=== PATIENT | female | born 1970 | race Caucasian/White ===

== ENCOUNTER 2020-08-01 03:47 | Emergency (ER) | payer MEDICAID ==
[~2020-08-01] VITALS: Ht 157.5 cm; Wt 110.8 kg
[2020-08-01 03:49] VITALS: BP 134/86
[2020-08-01] MEDS ORDERED: IBUPROFEN 600 MG TABLET ONE (03:55)
[2020-08-01] MEDS ORDERED: IBUPROFEN 600 MG TABLET PO ONE (04:00)
== END 2020-08-01 06:47 | disposition home or self-care (01) ==
LOC: ED 05:35
DX: G89.11 Acute pain due to trauma (principal); M25.562 Pain in left knee; W18.30XA Fall on same level, unspecified, initial encounter; Y93.89 Activity, other specified; Y92.89 Other specified places as the place of occurrence of the external cause; Y99.8 Other external cause status
CPT/HCPCS: 99284

== ENCOUNTER 2020-08-07 22:42 | Emergency (ER) | payer MEDICAID ==
[~2020-08-07] VITALS: Ht 162.6 cm; Wt 110.0 kg
--- NOTE | 2020-08-07 22:42 | NUR ---
INITIAL PT CONTACT. PT JACINTA C/O LEFT KNEE PAIN X6 MONTHS. WORSENING OVER LAST 8 WEEKS, SEEN 1 WK AGO DX WITH DVT. "I NEED A RX FOR HYDROCODONE. THAT'S ALL I WANT." PT GIVEN 600MG IBUPROFEN AND 1000MG TYLENOL WITH EMS. PT AMBULATORY WITH STEADY GAIT FROM AMBULANCE TO ED ROOM 16. PT SITTING UPRIGHT ON GURNEY, NADN, VSS. PT PROVIDED ICE PACK PER REQUEST. NO ADDITIONAL NEEDS AT THIS TIME. CALL LIGHT AND PERSONAL BELONGINGS WITHIN REACH. AWAITING ERP
[2020-08-07 22:44] VITALS: BP 168/92
[2020-08-07] MEDS ORDERED: NAPROXEN 500 MG TABLET PO ONE (23:00)
[2020-08-07] MEDS ORDERED: NAPROXEN 500 MG TABLET ONE (23:07)
--- NOTE | 2020-08-07 23:47 | NUR ---
MACHINE II CUTTER AT BEDSIDE FOR KNEE IMMOBILAER APPLICATION. PT TOLERATED WELL
--- NOTE | 2020-08-08 | NUR ---
Patient given discharge instructions and they have confirmed that they understand the instructions. Patient ambulatory with steady gait with use of cane provided
== END 2020-08-08 00:02 | disposition home or self-care (01) ==
LOC: ED 23:11
DX: M13.162 Monoarthritis, not elsewhere classified, left knee (principal); E66.01 Morbid (severe) obesity due to excess calories; Z68.41 Body mass index [BMI] 40.0-44.9, adult
CPT/HCPCS: 29505; 36415; 80299; 99283

== ENCOUNTER 2020-08-12 12:50 | Emergency (ER) | payer MEDICAID ==
[~2020-08-12] VITALS: Ht 162.6 cm; Wt 114.0 kg
--- NOTE | 2020-08-12 16:01 | NUR ---
TO RM 21 FROM LOBBY VIA W/C. AFTER PT GOT GOWN ON SHE AMBULATED TO BATHROOM WITHOUT ASSISTANCE, STEADY GAIT
--- NOTE | 2020-08-12 16:20 | NUR ---
PT ADDITIONALLY STATES SHE USED METH 5 DAYS AGO AND SHE IS CONCERNED IT HAD FENTANYL IN IT AND SHE HAS BEEN FEELING SHAKY SINCE THEN. PT REQUESTING SOMETHING TO TAKE THE EDGE OFF
--- NOTE | 2020-08-12 16:20 | NUR ---
PT STATES THAT SHE HAS BEEN HAVING INCREASED LEFT KNEE PAIN FOR 5 DAYS. SHE IS TAKING XARALTO FOR BLOOD CLOT DX IN THAT LEG. PT HAS KNEE IMMOBILIZER WITH HER THAT WAS GIVEN TO HER BY THIS ER. PT STATES IT SLIPS DOWN AND THAT IT FEELS LIKE IT DOESN'T FIT. PT STATES SHE HAS BEEN GETTING INVEGA INJECTIONS FOR 2 YEARS AND IS SPECULATING HER KNEE PAIN IS A SIDE EFFECT. PT STATES SHE WOULD LIKE TO GET AN INVEGA INJECTION TODAY BECAUSE SHE WAS DUE TO HAVE ONE AUGUST 08.
[2020-08-12] MEDS ORDERED: PALIPERIDONE PALMITATE 117 MG/0.75 ML SYR IM ONE ×2 (17:07→18:30)
--- NOTE | 2020-08-12 17:15 | NUR ---
OFF FLOOR TO XRAY
[2020-08-12] MEDS ORDERED: LORazepam 1MG TABLET PO ONE (17:30)
[2020-08-12] MEDS ORDERED: LORazepam 1MG TABLET ONE (17:37)
[2020-08-12 17:44] VITALS: BP 147/81
--- NOTE | 2020-08-12 18:45 | NUR ---
MD AWARE THAT PER PHARMACY INVEGA ONLY CARRED 156 MG. AWAITING NEW ORDER.
[2020-08-12] MEDS ORDERED: PALIPERIDONE PALMITATE 156 MG/ML IM ONE (19:05)
--- NOTE | 2020-08-12 19:06 | NUR ---
RESTING ON SIDE, NO DISTRESS.
--- NOTE | 2020-08-12 19:31 | NUR ---
medicated as noted on MAR with invega. UOB to w/c and to discharge window.
[2020-08-15] MEDS ORDERED: BIPOLAR MED (04:02)
[2020-08-15] MEDS ORDERED: BP MED (04:02)
[2020-08-15] MEDS ORDERED: ANTICOAGULANT (04:04)
== END 2020-08-12 19:34 | disposition home or self-care (01) ==
LOC: ED 19:28
DX: S89.92XA Unspecified injury of left lower leg, initial encounter (principal); F41.1 Generalized anxiety disorder; F31.9 Bipolar disorder, unspecified; F15.10 Other stimulant abuse, uncomplicated; M19.90 Unspecified osteoarthritis, unspecified site; Z86.718 Personal history of other venous thrombosis and embolism; X58.XXXA Exposure to other specified factors, initial encounter; Y93.89 Activity, other specified; Y92.89 Other specified places as the place of occurrence of the external cause; Y99.8 Other external cause status
CPT/HCPCS: 73564; 96372; 99283; J2426

== ENCOUNTER 2020-08-15 11:27 | Emergency (ER) | payer SELFPAY ==
[~2020-08-15] VITALS: Ht 162.6 cm; Wt 113.2 kg
[~2020-08-15 11:27] MED LIST: ANTICOAGULANT; BIPOLAR MED; BP MED
[2020-08-15 11:41] VITALS: BP 171/85
--- NOTE | 2020-08-15 12:15 | NUR ---
PT NOT IN ROOM. GAUZE DRESSING AND XEROFORM PAD ON RMYRON, TERRI ON THE FLOOR.
--- NOTE | 2020-08-15 12:19 | NUR ---
KHALIF HAINES TO ROOM FOR EXAM. PT STILL NOT IN ROOM; WHEREABOUTS UNKNOWN
== END 2020-08-15 12:24 | disposition left against medical advice (07) ==
LOC: ED 12:20
DX: M85.822 Other specified disorders of bone density and structure, left upper arm (principal); Z53.21 Procedure and treatment not carried out due to patient leaving prior to being seen by health care provider

== ENCOUNTER 2020-08-16 05:02 | Emergency (ER) | payer MEDICAID ==
[~2020-08-16] VITALS: Ht 162.6 cm; Wt 105.9 kg
[2020-08-16] MEDS ORDERED: ACETAMINOPHEN 500 MG TABLET PO ONE (05:30)
[2020-08-16] MEDS ORDERED: PIPERACILLIN/TAZO 3.375 GM in DEXTROSE 5% 50 ML IVPB ONE (05:30)
[2020-08-16 05:47] LABS: MEAN CORPUSCULAR HEMOGLOBIN 29.8 pg (27.0-34.8); MEAN CORPUSCULAR HGB CONC 34.6 g/dL (32.4-35.8); MEAN PLATELET VOLUME 7.7 fL (7.4-10.4); PLATELET COUNT 295 x10^3/uL (130-400); RED BLOOD COUNT 4.31 x10^6/uL (3.82-5.3); RED CELL DISTRIBUTION WIDTH 14.4 % (9.6-15.2)
[2020-08-16 05:55] LABS: ALANINE AMINOTRANSFERASE 24 U/L (12-78); ANION GAP 6 mmol/L (5-15); CALCIUM 8.5 mg/dL (8.5-10.1); CHLORIDE 103 mmol/L (98-107)
[2020-08-16 05:57] LABS: ALKALINE PHOSPHATASE 93 U/L (45-117); BILIRUBIN,TOTAL 0.4 mg/dL (0.2-1.0); CREATININE 0.58 mg/dL (0.55-1.02); TOTAL PROTEIN 7.6 g/dL (6.4-8.2)
[2020-08-16 06:12] LABS: BAND#(MANUAL) 0.34 x10^3/uL; BANDS%(MANUAL) 2 % (0-7); LYMPHS% (MANUAL) 7 % (22-44); MONOS#(MANUAL) 1.38 x10^3/uL (0.3-2.7); MONOS% (MANUAL) 8 % (2-9); SEG#(MANUAL) 14.28 x10^3/uL (1.8-6.8); SEGS% (MANUAL) 83 % (42-75)
[2020-08-16 06:13] LABS: <PLATELET ESTIMATE> ADEQUATE; <PLT MORPHOLOGY> NORMAL PLT MORPH; <RBC MORPHOLOGY> NORMAL
--- NOTE | 2020-08-16 07:01 | NUR ---
report to betty, rns
--- NOTE | 2020-08-16 07:03 | NUR ---
bedside report received from rj childs. pt a&o, resps even and unlabored, veronica.
--- NOTE | 2020-08-16 07:33 | NUR ---
report given to geoff childs
--- NOTE | 2020-08-16 07:36 | NUR ---
Report receieved from Helmi and Topher. Care assumed
--- NOTE | 2020-08-16 07:41 | NUR ---
WOUND DRESSING COMPELTED ORDERED. UPDATED PT REGARDING POC.
[2020-08-16 07:58] VITALS: BP 116/80
--- NOTE | 2020-08-16 08:01 | NUR ---
Patient given discharge instructions and they have confirmed that they understand the instructions. Patient ambulatory with steady gait. NAD, all questions answered appropriately, denies additional needs at this time. No personal belongings left in room after discharge.
== END 2020-08-16 08:02 | disposition home or self-care (01) ==
LOC: ED 05:16
DX: A41.9 Sepsis, unspecified organism (principal); M71.122 Other infective bursitis, left elbow; L03.114 Cellulitis of left upper limb; F17.200 Nicotine dependence, unspecified, uncomplicated; Z88.2 Allergy status to sulfonamides; Z86.718 Personal history of other venous thrombosis and embolism
CPT/HCPCS: 36415; 80053; 83605; 84145; 85025; 96365; 99284; J2543